=== PATIENT | female | born 1935 | race African-American/Black ===

== ENCOUNTER 2020-11-12 23:08 | Emergency (ER) | payer OTHER ==
[2020-11-12 23:25] VITALS: BMI 19.2
[2020-11-13 00:43] LABS: BASO % 1.3 % (0-2.0); EOS % 3.2 % (0-4.5); MCH 27.9 pg (25.7-33.7); MCHC 30.4 g/dl (32.0-36.0); MEAN CELL VOLUME 91.7 fl (80-96); MEAN PLT VOLUME 8.9 fl (7.5-11.1); MONO % 10.7 % (3.8-10.2); NEUT % 67.8 % (42.8-82.8); PLATELET COUNT 363 K/MM3 (134-434); RBC 2.39 M/mm3 (3.60-5.2); RDW 19.7 % (11.6-15.6)
[2020-11-13 00:53] LABS: HEMOGLOBIN 6.7 GM/dL (10.7-15.3)
[2020-11-13] MEDS ORDERED: LOSARTAN POTASSIUM 50 MG TABLET PO ONE (05:30)
[2020-11-13] MEDS ORDERED: LOSARTAN POTASSIUM 50 MG TABLET ONE (05:31)
[2020-11-13] MEDS ORDERED: METOPROLOL TARTRATE 50 MG TABLET (FP) PO ONE (06:41)
[2020-11-13] MEDS ORDERED: METOPROLOL TARTRATE 50 MG TABLET (FP) ONE (06:42)
[2020-11-13 08:30] VITALS: TEMP 99.6
[2020-11-13 10:27] VITALS: BP 188/75; PULSE 79
== END 2020-11-13 10:58 | disposition home or self-care (01) ==
LOC: JER 23:08
DX: D64.9 Anemia, unspecified (principal)
CPT/HCPCS: 36415; 36430; 85025; 86850; 86900; 86901; 86922; 99284-25; P9058

== ENCOUNTER 2021-03-12 21:13 | Emergency (ER) | payer OTHER ==
[2021-03-12 21:30] VITALS: BP 151/77; PULSE 71; TEMP 98.1; BMI 19.5
== END 2021-03-13 00:12 ==
LOC: JER 21:13
DX: L98.499 Non-pressure chronic ulcer of skin of other sites with unspecified severity (principal); R58 Hemorrhage, not elsewhere classified
CPT/HCPCS: 99283-25

== ENCOUNTER 2021-04-03 06:10 | Emergency (ER) | payer OTHER ==
[2021-04-03 06:17] VITALS: BMI 26.6
[2021-04-03] MEDS ORDERED: FAMOTIDINE 20 MG/50 ML IVPB 20 MG/50 ML MG IVPB ONE ×2 (21:08→21:11)
[2021-04-03] MEDS ORDERED: MAG HYDROX/AL HYDROX/SIMETH -MYLANTA- ORAL SUSPENSION PO ONE (21:09)
[2021-04-03] MEDS ORDERED: MAG HYDROX/AL HYDROX/SIMETH 30 ML UNIT-DOSE CUP ONE (21:11)
[2021-04-03] MEDS ORDERED: FAMOTIDINE 20 MG TABLET ONE (21:13)
[2021-04-03] MEDS ORDERED: FAMOTIDINE 20 MG TABLET PO ONE (21:13)
[2021-04-04 01:12] VITALS: BP 176/63; PULSE 76; TEMP 98.4
== END 2021-04-04 04:58 ==
LOC: JER 06:10
DX: S21.001A Unspecified open wound of right breast, initial encounter (principal); Y99.9 Unspecified external cause status
CPT/HCPCS: 99283-25

== ENCOUNTER 2021-04-12 10:07 | Inpatient (IN) | payer OTHER ==
[2021-04-12 13:10] LABS: BASO % 0.8 % (0-2.0); EOS % 1.9 % (0-4.5); LYMPH % 20.3 % (8-40); MCH 26.7 pg (25.7-33.7); MCHC 31.9 g/dl (32.0-36.0); MEAN CELL VOLUME 83.5 fl (80-96); MONO % 10.2 % (3.8-10.2); NEUT % 66.8 % (42.8-82.8); PLATELET COUNT 303 10^3/uL (134-434); RBC 2.04 M/mm3 (3.60-5.2); RDW 18.3 % (11.6-15.6); WHITE BLOOD COUNT 5.5 K/mm3 (4.0-10.0)
[2021-04-12 13:12] LABS: HEMOGLOBIN 5.4 GM/dL (10.7-15.3)
[2021-04-12 13:47] LABS: ALBUMIN 2.6 g/dl (3.4-5.0); CALCIUM 8.4 mg/dL (8.5-10.1)
[2021-04-12 14:04] LABS: BILIRUBIN,TOTAL 0.1 mg/dL (0.2-1); BLOOD UREA NITROGEN 38.4 mg/dL (7-18); CREATININE 1.9 mg/dL (0.55-1.3); TOT PROT 6.1 g/dl (6.4-8.2)
[2021-04-12 22:08] VITALS: BMI 19.7
[2021-04-13] MEDS ORDERED: FUROSEMIDE 40 MG TABLET (FP) PO ONE (11:26)
[2021-04-13 11:39] LABS: HEMATOCRIT 30.9 % (32.4-45.2); HEMOGLOBIN 10.2 GM/dL (10.7-15.3); MCH 27.8 pg (25.7-33.7); MCHC 32.9 g/dl (32.0-36.0); MEAN CELL VOLUME 84.5 fl (80-96); MEAN PLT VOLUME 8.1 fl (7.5-11.1); PLATELET COUNT 298 10^3/uL (134-434); RBC 3.66 M/mm3 (3.60-5.2); RDW 15.3 % (11.6-15.6); WHITE BLOOD COUNT 6.2 K/mm3 (4.0-10.0)
[2021-04-13] MEDS ORDERED: ISOSORBIDE DINITRATE 20 MG TABLET PO SCH (13:00)
[2021-04-13] MEDS ORDERED: PT OWN MED DRAWER 7, Y5N ONE (13:01)
[2021-04-13] MEDS ORDERED: hydrALAZINE HCL 25 MG TABLET (FP) PO SCH (14:00)
[2021-04-13 18:42] VITALS: BP 152/59; PULSE 70; TEMP 98.7
[2021-04-13] MEDS ORDERED: GABAPENTIN 100 MG CAPSULE PO SCH (22:00)
[2021-04-14] MEDS ORDERED: CITALOPRAM HYDROBROMIDE 10 MG TABLET PO SCH (10:00)
[2021-04-14] MEDS ORDERED: LOSARTAN POTASSIUM 50 MG TABLET PO SCH (10:00)
== END 2021-04-13 20:36 | DRG 598 ==
LOC: JER 10:07 → JERBED 13:58 → J5S 18:34
PROVIDERS: ADMIT Internal Medicine; ATTEND Internal Medicine
PROC: 30233N1 Transfusion of Nonautologous Red Blood Cells into Peripheral Vein, Percutaneous Approach (ICD-10-PCS; principal; 2021-04-12)
DX: C50.911 Malignant neoplasm of unspecified site of right female breast (principal); I69.354 Hemiplegia and hemiparesis following cerebral infarction affecting left non-dominant side; C50.919 Malignant neoplasm of unspecified site of unspecified female breast; K21.9 Gastro-esophageal reflux disease without esophagitis; K74.60 Unspecified cirrhosis of liver; F03.90 Unspecified dementia, unspecified severity, without behavioral disturbance, psychotic disturbance, mood disturbance, and anxiety; I12.9 Hypertensive chronic kidney disease with stage 1 through stage 4 chronic kidney disease, or unspecified chronic kidney disease; J44.9 Chronic obstructive pulmonary disease, unspecified; E11.22 Type 2 diabetes mellitus with diabetic chronic kidney disease; E78.5 Hyperlipidemia, unspecified; Z66 Do not resuscitate; N18.9 Chronic kidney disease, unspecified; D64.9 Anemia, unspecified
CPT/HCPCS: 36415; 36430; 80053; 82272; 85025; 85027; 86850; 86900; 86901; 86922; 93005; 93010; 99285-25; C9803; P9058; U0003; U0005

== ENCOUNTER 2021-05-17 15:24 | Inpatient (IN) | payer OTHER ==
[2021-05-17 15:48] VITALS: BMI 23.6
[2021-05-17 19:02] LABS: BASO % 0.9 % (0-2.0); HEMATOCRIT 19.2 % (32.4-45.2); LYMPH % 18.8 % (8-40); MCHC 32.1 g/dl (32.0-36.0); MEAN CELL VOLUME 84.3 fl (80-96); MONO % 13.7 % (3.8-10.2); NEUT % 64.6 % (42.8-82.8); PLATELET COUNT 334 10^3/uL (134-434); RBC 2.27 M/mm3 (3.60-5.2); RDW 17.3 % (11.6-15.6); WHITE BLOOD COUNT 5.8 K/mm3 (4.0-10.0)
[2021-05-17 19:04] LABS: HEMOGLOBIN 6.1 GM/dL (10.7-15.3)
[2021-05-17 19:32] LABS: CALCIUM 8.8 mg/dL (8.5-10.1)
[2021-05-17 19:33] LABS: ALBUMIN 2.8 g/dl (3.4-5.0); BLOOD UREA NITROGEN 35.1 mg/dL (7-18)
[2021-05-17 19:37] LABS: BILIRUBIN,TOTAL 0.2 mg/dL (0.2-1)
[2021-05-17 19:38] LABS: TOT PROT 6.7 g/dl (6.4-8.2)
[2021-05-17] MEDS ORDERED: DEXTROSE 50%-WATER - 25 GM/50 ML VIAL IVPUSH ONE (20:51)
[2021-05-17] MEDS ORDERED: CALCIUM GLUCONATE 10% - 1,000 MG/10 ML VIAL IVPUSH ONE ×2 (20:51→22:33)
[2021-05-17] MEDS ORDERED: INSULIN REGULAR HUMAN 100 UNITS/ML *VIAL IVPUSH ONE ×2 (20:51→22:30)
[2021-05-17] MEDS ORDERED: ALBUTEROL SO4 HFA INHALER IH ONE ×2 (20:52→21:10)
[2021-05-17] MEDS ORDERED: CALCIUM GLUCONATE 10% - 1,000 MG/10 ML VIAL ONE (21:10)
[2021-05-17] MEDS ORDERED: INSULIN REGULAR HUMAN 100 UNITS/ML *VIAL ONE (21:11)
[2021-05-17] MEDS ORDERED: DEXTROSE 50%-WATER 25 GM/50 ML DISP.SYRIN ONE (21:11)
[2021-05-17] MEDS ORDERED: DEXTROSE 50%-WATER 25 GM/50 ML DISP.SYRIN IVPUSH ONE (22:30)
[2021-05-17] MEDS ORDERED: ALBUTEROL SO4 0.083% IH SOL 2.5 MG/3 ML VIAL.NEB. NEB ONE (22:33)
[2021-05-18 00:50] LABS: BLOOD UREA NITROGEN 32.2 mg/dL (7-18)
[2021-05-18 00:53] LABS: CREATININE 1.9 mg/dL (0.55-1.3)
[2021-05-18] MEDS ORDERED: LORazepam 2 MG/ML SDV VIAL IVPUSH ONE (05:12)
[2021-05-18] MEDS ORDERED: traMADol HCL 50 MG TABLET PO PRN (06:30)
[2021-05-18 08:21] LABS: BASO % 0.6 % (0-2.0); HEMATOCRIT 28.9 % (32.4-45.2); HEMOGLOBIN 9.6 GM/dL (10.7-15.3); LYMPH % 11.7 % (8-40); MCH 28.9 pg (25.7-33.7); MCHC 33.1 g/dl (32.0-36.0); MEAN CELL VOLUME 87.3 fl (80-96); MEAN PLT VOLUME 7.3 fl (7.5-11.1); MONO % 8.9 % (3.8-10.2); NEUT % 77.8 % (42.8-82.8); PLATELET COUNT 368 10^3/uL (134-434); RBC 3.31 M/mm3 (3.60-5.2); RDW 16.7 % (11.6-15.6); WHITE BLOOD COUNT 8.7 K/mm3 (4.0-10.0)
[2021-05-18 08:43] LABS: ALBUMIN 2.9 g/dl (3.4-5.0); BLOOD UREA NITROGEN 30.2 mg/dL (7-18); CALCIUM 9.2 mg/dL (8.5-10.1)
[2021-05-18 08:47] LABS: CREATININE 1.7 mg/dL (0.55-1.3)
[2021-05-18 08:48] LABS: BILIRUBIN,TOTAL 0.3 mg/dL (0.2-1)
[2021-05-18] MEDS: DOCUSATE SODIUM 100 MG CAPSULE (FP) PO SCH (11:07)
[2021-05-18] MEDS: ALBUTEROL SO4 2.5/IPRATROPIUM 0.5 INH SOL 3 ML VIAL.NEB. NEB SCH ×3 (11:07→20:08)
[2021-05-18] MEDS: hydrALAZINE HCL 25 MG TABLET (FP) PO SCH ×3 (11:07→21:56)
[2021-05-18] MEDS: TOLTERODINE TARTRATE 2 MG TABLET PO SCH ×2 (11:08→23:00)
[2021-05-18] MEDS: LOSARTAN POTASSIUM 50 MG TABLET PO SCH (11:08)
[2021-05-18] MEDS: FERROUS SO4 325 MG TABLET (FP) PO SCH (11:08)
[2021-05-18] MEDS: GABAPENTIN 100 MG CAPSULE PO SCH ×2 (11:08→21:55)
[2021-05-18] MEDS: CYANOCOBALAMIN 1,000 MCG TABLET (FP) PO SCH (11:09)
[2021-05-18] MEDS: PANTOPRAZOLE 20 MG TABLET PO SCH (11:09)
[2021-05-18] MEDS: MULTIVITAMINS (DAILY MVI) TABLET (FP) PO SCH (11:10)
[2021-05-18] MEDS ORDERED: ALBUTEROL SO4 2.5/IPRATROPIUM 0.5 INH SOL 3 ML VIAL.NEB. NEB ONE (12:30)
[2021-05-18] MEDS ORDERED: SODIUM CHLORIDE 0.45% 1,000 ML IV SCH (16:30)
[2021-05-18] MEDS: ISOSORBIDE DINITRATE 20 MG TABLET PO SCH (18:41)
[2021-05-18] MEDS: SODIUM ZIRCONIUM CYCLOSILICATE (LOKELMA) 5 GM PACKET PO SCH (18:42)
[2021-05-18] MEDS ORDERED: PT OWN MED DRAWER 7, Y5N ONE ×2 (21:32→21:45)
[2021-05-18] MEDS: MOMETASONE FUROATE 220 MCG/IH INHALER IH SCH (22:51)
[2021-05-19] MEDS: hydrALAZINE HCL 25 MG TABLET (FP) PO SCH ×3 (06:52→21:32)
[2021-05-19 07:01] LABS: HEMATOCRIT 23.7 % (32.4-45.2); HEMOGLOBIN 7.9 GM/dL (10.7-15.3); MCH 28.9 pg (25.7-33.7); MCHC 33.4 g/dl (32.0-36.0); MEAN CELL VOLUME 86.5 fl (80-96); MEAN PLT VOLUME 7.6 fl (7.5-11.1); PLATELET COUNT 317 10^3/uL (134-434); RBC 2.74 M/mm3 (3.60-5.2); RDW 16.7 % (11.6-15.6); WHITE BLOOD COUNT 7.7 K/mm3 (4.0-10.0)
[2021-05-19] MEDS: ALBUTEROL SO4 2.5/IPRATROPIUM 0.5 INH SOL 3 ML VIAL.NEB. NEB SCH ×4 (07:25→20:10)
[2021-05-19 07:29] LABS: CALCIUM 8.3 mg/dL (8.5-10.1)
[2021-05-19 07:30] LABS: ALBUMIN 2.7 g/dl (3.4-5.0); BLOOD UREA NITROGEN 24.9 mg/dL (7-18)
[2021-05-19 07:33] LABS: BILIRUBIN,TOTAL 0.5 mg/dL (0.2-1); CREATININE 1.5 mg/dL (0.55-1.3); TOT PROT 6.4 g/dl (6.4-8.2)
[2021-05-19] MEDS: PANTOPRAZOLE 20 MG TABLET PO SCH (09:29)
[2021-05-19] MEDS: CYANOCOBALAMIN 1,000 MCG TABLET (FP) PO SCH (09:30)
[2021-05-19] MEDS: GABAPENTIN 100 MG CAPSULE PO SCH ×2 (09:30→21:32)
[2021-05-19] MEDS: MULTIVITAMINS (DAILY MVI) TABLET (FP) PO SCH (09:30)
[2021-05-19] MEDS: SODIUM ZIRCONIUM CYCLOSILICATE (LOKELMA) 5 GM PACKET PO SCH ×2 (09:31→14:20)
[2021-05-19] MEDS: FERROUS SO4 325 MG TABLET (FP) PO SCH (09:31)
[2021-05-19] MEDS: LOSARTAN POTASSIUM 50 MG TABLET PO SCH (09:32)
[2021-05-19] MEDS: DOCUSATE SODIUM 100 MG CAPSULE (FP) PO SCH (09:32)
[2021-05-19] MEDS: TOLTERODINE TARTRATE 2 MG TABLET PO SCH ×2 (09:33→21:32)
[2021-05-19] MEDS: ISOSORBIDE DINITRATE 20 MG TABLET PO SCH ×2 (09:33→18:15)
[2021-05-19] MEDS ORDERED: PT OWN MED DRAWER 7, Y5N ONE ×2 (20:50→21:31)
[2021-05-19] MEDS: MAG HYDROX/AL HYDROX/SIMETH 30 ML UNIT-DOSE CUP PO PRN (21:57)
[2021-05-19] MEDS: MOMETASONE FUROATE 220 MCG/IH INHALER IH SCH (21:59)
[2021-05-20] MEDS: hydrALAZINE HCL 25 MG TABLET (FP) PO SCH ×3 (05:08→21:56)
[2021-05-20] MEDS: MAG HYDROX/AL HYDROX/SIMETH 30 ML UNIT-DOSE CUP PO PRN (05:08)
[2021-05-20] MEDS: ALBUTEROL SO4 2.5/IPRATROPIUM 0.5 INH SOL 3 ML VIAL.NEB. NEB SCH ×4 (07:25→20:50)
[2021-05-20] MEDS: GABAPENTIN 100 MG CAPSULE PO SCH ×2 (09:28→21:56)
[2021-05-20] MEDS: CYANOCOBALAMIN 1,000 MCG TABLET (FP) PO SCH (09:28)
[2021-05-20] MEDS: MULTIVITAMINS (DAILY MVI) TABLET (FP) PO SCH (09:28)
[2021-05-20] MEDS: SODIUM ZIRCONIUM CYCLOSILICATE (LOKELMA) 5 GM PACKET PO SCH (09:28)
[2021-05-20] MEDS: PANTOPRAZOLE 20 MG TABLET PO SCH (09:29)
[2021-05-20] MEDS: DOCUSATE SODIUM 100 MG CAPSULE (FP) PO SCH (09:29)
[2021-05-20] MEDS: LOSARTAN POTASSIUM 50 MG TABLET PO SCH (09:29)
[2021-05-20] MEDS: FERROUS SO4 325 MG TABLET (FP) PO SCH (09:29)
[2021-05-20] MEDS ORDERED: PT OWN MED DRAWER 7, Y5N ONE ×2 (10:19→21:23)
[2021-05-20] MEDS: ONDANSETRON 4 MG/2 ML VIAL IVPUSH PRN ×2 (10:23→17:45)
[2021-05-20] MEDS: TOLTERODINE TARTRATE 2 MG TABLET PO SCH ×2 (10:24→21:56)
[2021-05-20] MEDS: ISOSORBIDE DINITRATE 20 MG TABLET PO SCH ×2 (10:24→17:40)
[2021-05-20] MEDS: MOMETASONE FUROATE 220 MCG/IH INHALER IH SCH (21:57)
[2021-05-21] MEDS: hydrALAZINE HCL 25 MG TABLET (FP) PO SCH ×3 (05:51→21:40)
[2021-05-21] MEDS: ALBUTEROL SO4 2.5/IPRATROPIUM 0.5 INH SOL 3 ML VIAL.NEB. NEB SCH ×4 (07:50→20:11)
[2021-05-21 08:14] LABS: BASO % 0.5 % (0-2.0); EOS % 0.1 % (0-4.5); HEMATOCRIT 23.4 % (32.4-45.2); HEMOGLOBIN 7.5 GM/dL (10.7-15.3); LYMPH % 8.6 % (8-40); MCH 27.9 pg (25.7-33.7); MCHC 31.9 g/dl (32.0-36.0); MEAN CELL VOLUME 87.4 fl (80-96); MEAN PLT VOLUME 7.4 fl (7.5-11.1); MONO % 6.8 % (3.8-10.2); PLATELET COUNT 347 10^3/uL (134-434); RBC 2.68 M/mm3 (3.60-5.2); RDW 17.8 % (11.6-15.6); WHITE BLOOD COUNT 9.6 K/mm3 (4.0-10.0)
[2021-05-21 08:36] LABS: ALBUMIN 2.6 g/dl (3.4-5.0); CALCIUM 8.5 mg/dL (8.5-10.1)
[2021-05-21 08:37] LABS: BLOOD UREA NITROGEN 29.8 mg/dL (7-18)
[2021-05-21 08:40] LABS: BILIRUBIN,TOTAL 0.2 mg/dL (0.2-1); CREATININE 2.2 mg/dL (0.55-1.3); TOT PROT 6.1 g/dl (6.4-8.2)
[2021-05-21] MEDS: DOCUSATE SODIUM 100 MG CAPSULE (FP) PO SCH (09:45)
[2021-05-21] MEDS: CYANOCOBALAMIN 1,000 MCG TABLET (FP) PO SCH (09:45)
[2021-05-21] MEDS: PANTOPRAZOLE 20 MG TABLET PO SCH (09:45)
[2021-05-21] MEDS: FERROUS SO4 325 MG TABLET (FP) PO SCH (09:45)
[2021-05-21] MEDS: GABAPENTIN 100 MG CAPSULE PO SCH ×2 (09:46→21:40)
[2021-05-21] MEDS: LOSARTAN POTASSIUM 50 MG TABLET PO SCH (09:46)
[2021-05-21] MEDS: MULTIVITAMINS (DAILY MVI) TABLET (FP) PO SCH (09:46)
[2021-05-21] MEDS: TOLTERODINE TARTRATE 2 MG TABLET PO SCH ×2 (09:47→21:40)
[2021-05-21] MEDS: ISOSORBIDE DINITRATE 20 MG TABLET PO SCH ×2 (09:48→17:03)
[2021-05-21] MEDS: SODIUM ZIRCONIUM CYCLOSILICATE (LOKELMA) 5 GM PACKET PO SCH (09:49)
[2021-05-21] MEDS: DEXTROSE 5%-0.45% SALINE 1,000 ML IV SCH (12:10)
[2021-05-21] MEDS ORDERED: PT OWN MED DRAWER 7, Y5N ONE (21:18)
[2021-05-21] MEDS: MOMETASONE FUROATE 220 MCG/IH INHALER IH SCH (21:38)
[2021-05-22] MEDS: hydrALAZINE HCL 25 MG TABLET (FP) PO SCH ×2 (06:00→13:22)
[2021-05-22] MEDS: ALBUTEROL SO4 2.5/IPRATROPIUM 0.5 INH SOL 3 ML VIAL.NEB. NEB SCH ×3 (07:35→15:37)
[2021-05-22 09:37] VITALS: TEMP 98
[2021-05-22] MEDS: TOLTERODINE TARTRATE 2 MG TABLET PO SCH (09:51)
[2021-05-22] MEDS: ISOSORBIDE DINITRATE 20 MG TABLET PO SCH (09:51)
[2021-05-22] MEDS: DOCUSATE SODIUM 100 MG CAPSULE (FP) PO SCH (09:52)
[2021-05-22] MEDS: FERROUS SO4 325 MG TABLET (FP) PO SCH (09:52)
[2021-05-22] MEDS: CYANOCOBALAMIN 1,000 MCG TABLET (FP) PO SCH (09:52)
[2021-05-22] MEDS: MULTIVITAMINS (DAILY MVI) TABLET (FP) PO SCH (09:52)
[2021-05-22] MEDS: GABAPENTIN 100 MG CAPSULE PO SCH (09:52)
[2021-05-22] MEDS: PANTOPRAZOLE 20 MG TABLET PO SCH (09:52)
[2021-05-22] MEDS: DEXTROSE 5%-0.45% SALINE 1,000 ML IV SCH (13:21)
[2021-05-22 14:24] VITALS: BP 118/60; PULSE 64
== END 2021-05-22 16:20 | DRG 598 ==
LOC: JER 15:24 → UNDOADMIN 16:51 → JERBED 16:51 → INTOOBSV 16:51 → OBSVTOIN 16:51 → J4W 05-18 15:52 → JERBED 05-18 15:52 → J4W 05-19 11:56
PROVIDERS: ADMIT Internal Medicine; ATTEND Internal Medicine
PROC: 30233N1 Transfusion of Nonautologous Red Blood Cells into Peripheral Vein, Percutaneous Approach (ICD-10-PCS; principal; 2021-05-18)
DX: C50.911 Malignant neoplasm of unspecified site of right female breast (principal); F03.91 Unspecified dementia, unspecified severity, with behavioral disturbance; N17.9 Acute kidney failure, unspecified; G81.94 Hemiplegia, unspecified affecting left nondominant side; D64.9 Anemia, unspecified; E11.22 Type 2 diabetes mellitus with diabetic chronic kidney disease; K74.60 Unspecified cirrhosis of liver; J44.9 Chronic obstructive pulmonary disease, unspecified; K21.9 Gastro-esophageal reflux disease without esophagitis; I12.9 Hypertensive chronic kidney disease with stage 1 through stage 4 chronic kidney disease, or unspecified chronic kidney disease; N18.9 Chronic kidney disease, unspecified; E87.5 Hyperkalemia; F17.210 Nicotine dependence, cigarettes, uncomplicated
CPT/HCPCS: 36415; 36430; 71045-TC-FY; 80048; 80053; 82272; 85025; 85027; 86850; 86900; 86901; 86922; 93005; 93010; 94640; 99285-25; C9803; P9058; U0003; U0005

== ENCOUNTER 2021-05-27 10:32 | Emergency (ER) | payer OTHER ==
[2021-05-27 13:52] VITALS: BMI 23.6
[2021-05-27 16:19] VITALS: BP 170/78; PULSE 99; TEMP 97.7
== END 2021-05-27 16:32 ==
LOC: JER 10:32
DX: S21.001A Unspecified open wound of right breast, initial encounter (principal)
CPT/HCPCS: 93005; 93010; 99283-25